=== PATIENT | female | born 1990 | race African-American/Black ===

== ENCOUNTER 2017-06-15 00:47 | Emergency (ER) | payer SELFPAY ==
[~2017-06-15] VITALS: Ht 165.1 cm; Wt 86.0 kg
[2017-06-15 00:50] VITALS: BP 140/94
== END 2017-06-15 05:42 | disposition left against medical advice (07) ==
LOC: ER 00:47
DX: S01.81XA Laceration without foreign body of other part of head, initial encounter (principal); Z53.21 Procedure and treatment not carried out due to patient leaving prior to being seen by health care provider; X58.XXXA Exposure to other specified factors, initial encounter; Y93.89 Activity, other specified; Y92.89 Other specified places as the place of occurrence of the external cause; Y99.8 Other external cause status